=== PATIENT | female | born 1950 | race Caucasian/White ===

== ENCOUNTER → 2019-08-29 08:07 | Outpatient (CLI) | payer MEDICARE, OTHER ==
[2009-09-11 09:31] VITALS: BMI 25.7
--- NOTE | ~2019-08-29 | EC ---
PATIENT:THANIA JARVIS DATE OF SERVICE: 08/29/19 SEX: F MEDICAL RECORD: [id number] DATE OF : 50 [facility] AGE OF PATIENT: 69 ADMISSION DATE: 08/29/19 REFERRING PHYSICIAN: INTERPRETING PHYSICIAN: ELENI GÓMEZ MD ECHOCARDIOGRAM REPORT ECHO CHARGES 4 ECHO COMPLETE Date: 08/29/19 CLINICAL DIAGNOSIS: PALPITATIONS/MR/AI/FATIGUE H/O CAD/HTN ECHOCARDIOGRAPHIC MEASUREMENTS (adult normal given) AC root (d.<3.7cm) 3.0 cm LV Septum d (<1.2 cm> 1.3 cm Valve Excursion 1.6 cm LV Septum (systole) 1.6 cm Left Atria (s.<4.0cm> 4.1 cm LVPW d(<1.2cm) 1.2 cm RV (d.<2.3cm) 2.4 cm LVPW (sytole) 1.7 cm LV diastole(<5.6CM) 5.7 cm MV E-F(>70mm/sec) cm LV systole 3.9 cm LVOT Diameter 1.8 cm MV exc.(>10mm) cm Est.ejection fraction (50-75%) % DOPPLER: LVIT cm/sec A 84.0 cm/sec E 64.0 cm/sec LA cm/sec RVSP 37.0 mmHg LVOT 94.0 cm/sec AOP1/2T m/s Asc. 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 Gómez TAPE# PACS Pericardial Effusion N DATE OF SERVICE: 08/29/2019 FINDINGS: 1. Left ventricular chamber size is mildly dilated. Left ventricular systolic function is preserved at 55%. 2. Left atrium is enlarged at 4.1 cm. Right atrium and right ventricle chamber sizes are as well mildly dilated. 3. Valvular structures have normal structure and motion. 4. Doppler interrogation reveals mild aortic insufficiency, [id number] tricuspid regurgitation, no other valvular insufficiency or stenosis. ECHOCARDIOGRAM REPORT [id number] JARVIS,THANIA S 5. No evidence of pericardial effusion or left ventricular thrombus. Pulmonary systolic pressure is normal estimated at 37 mmHg. TRANSINT:[id number] Voice Confirmation ID: [id number] DOCUMENT ID: [id number] ELENI GÓMEZ MD CC: [id number] DICTATION DATE: 08/29/19 1635 REFINERY OPERATOR REFORMING UNIT: 08/29/19 2219 [facility] [address] [id number]
== END | disposition home or self-care (01) ==
LOC: D.HCCECHO 08:07
PROVIDERS: ATTEND Internal Medicine Interventional Cardiology
DX: I25.10 Atherosclerotic heart disease of native coronary artery without angina pectoris (principal)